=== PATIENT | female | born 1965 | race Caucasian/White ===

== ENCOUNTER → 2017-05-21 | Outpatient (CLI) | payer BC ==
--- NOTE | 2017-05-22 08:39 | RAD ---
DATE: 05/21/2017 EXAM: MAMMO SAM SCREENING BILATERAL HISTORY: Routine screening COMPARISON: 05/04/2015 This study was interpreted with the benefit of Computerized Aided Detection (CAD). The breast parenchyma shows scattered fibroglandular densities. Breast parenchyma level B. FINDINGS: 2-D and 3-D tomosynthesis imaging was performed in CC and MLO projections. A small nodular opacity is again noted in the right breast at approximately 12:00 location. It is best seen on the oblique projection and is unchanged. No new or enlarging breast densities are seen. No suspicious microcalcifications are evident. IMPRESSION: Stable mammograms without evidence of malignancy. BI-RADS CATEGORY: 2 BENIGN FINDING(S) RECOMMENDED FOLLOW-UP: 12M 12 MONTH FOLLOW-UP PQRS compliance statement: Patient information was entered into a reminder system with a target due date for the next mammogram. Mammography is a sensitive method for finding small breast cancers, but it does not detect them all and is not a substitute for careful clinical examination. A negative mammogram does not negate a clinically suspicious finding and should not result in delay in biopsying a clinically suspicious abnormality. "Our facility is accredited by the [employer] Mammography [employer]."
== END | disposition home or self-care (01) ==
LOC: MAMMO 10:15
PROVIDERS: ATTEND Family Medicine
DX: Z12.31 Encounter for screening mammogram for malignant neoplasm of breast (principal)
CPT/HCPCS: 77063; 77067

== ENCOUNTER → 2018-08-26 | Outpatient (CLI) | payer BC ==
--- NOTE | 2018-08-27 08:55 | RAD ---
DATE: 08/26/2018 EXAM: MAMMO SAM SCREENING BILATERAL HISTORY: Routine screening COMPARISON: 05/21/2017 This study was interpreted with the benefit of Computerized Aided Detection (CAD). Breast Density: SCATTERED The breast parenchyma shows scattered fibroglandular densities. Breast parenchyma level B. FINDINGS: 2-D and 3-D tomosynthesis imaging was performed in CC and MLO projections. No new or enlarging breast densities are seen. No suspicious microcalcification is evident. IMPRESSION: There is no mammographic evidence of malignancy in either breast. BI-RADS CATEGORY: 1 NEGATIVE RECOMMENDED FOLLOW-UP: 12M 12 MONTH FOLLOW-UP PQRS compliance statement: Patient information was entered into a reminder system with a target due date for the next mammogram. Mammography is a sensitive method for finding small breast cancers, but it does not detect them all and is not a substitute for careful clinical examination. A negative mammogram does not negate a clinically suspicious finding and should not result in delay in biopsying a clinically suspicious abnormality. "Our facility is accredited by the [employer] Mammography [employer]."
== END | disposition home or self-care (01) ==
LOC: MAMMO 13:00
PROVIDERS: ATTEND Obstetrics & Gynecology
DX: Z12.31 Encounter for screening mammogram for malignant neoplasm of breast (principal)
CPT/HCPCS: 77063; 77067

== ENCOUNTER → 2019-09-01 | Outpatient (CLI) | payer BC ==
--- NOTE | 2019-09-02 12:20 | RAD ---
DATE: 09/01/2019 3:12 PM EXAM: MAMMO SAM SCREENING BILATERAL HISTORY: Screening COMPARISON: 08/26/2018, 05/21/2017 Bilateral CC and MLO views of the breasts were performed. Bilateral breast tomosynthesis was performed in CC and MLO projections. This study was interpreted with the benefit of Computerized Aided Detection (CAD). FINDINGS: Breast Density: SCATTERED The breast parenchyma shows scattered fibroglandular densities. Breast parenchyma level B No suspicious masses, microcalcifications or architectural distortion is present to suggest malignancy in either breast. The visualized axillae are unremarkable. IMPRESSION: No mammographic evidence of malignancy. BI-RADS CATEGORY: 1 NEGATIVE RECOMMENDED FOLLOW-UP: 12M 12 MONTH FOLLOW-UP Annual screening mammography is recommended, unless clinically indicated sooner based on symptoms or change in physical exam. PQRS compliance statement: Patient information was entered into a reminder system with a target due date 09/01/2020 for the next mammogram. Mammography is a sensitive method for finding small breast cancers, but it does not detect them all and is not a substitute for careful clinical examination. A negative mammogram does not negate a clinically suspicious finding and should not result in delay in biopsying a clinically suspicious abnormality. "Our facility is accredited by the [employer] Mammography [employer]."
== END | disposition home or self-care (01) ==
LOC: MAMMO 14:39
PROVIDERS: ATTEND Family Medicine
DX: Z12.31 Encounter for screening mammogram for malignant neoplasm of breast (principal)
CPT/HCPCS: 77063; 77067

== ENCOUNTER → 2020-10-18 | Outpatient (CLI) | payer BC ==
--- NOTE | 2020-10-18 16:51 | RAD ---
EXAM: BILATERAL DIGITAL 3D SCREENING MAMMOGRAPHY. HISTORY: Routine mammographic screening. TECHNIQUE: Bilateral digital 3D and tomographic images were obtained in CC and MLO projections. Compu ter-aided detection was applied. COMPARISON: 09/01/2019. COMPOSITION: B. There are scattered areas of fibroglandular density. FINDINGS: There are obscured nodules centrally on the CC view. One projects inferiorly on the MLO vie w, while the other has no clear correlate. There is also a developing parenchymal asymmetry centrally on the right MLO view. See annotations. There is no suspicious finding on the left. BI-RADS CATEGORY 0: Incomplete--Needs Additional Imaging Evaluation. RECOMMENDATION: 1. Sonography of the right breast from 12:00-6:00 to assess developing parenchymal asymmetry and smal l nodules as above. Electronically signed by: Carolyn Carranza MD (10/18/2020 4:49 PM) [email or web address]
== END ==
LOC: MAMMO 11:45
PROVIDERS: ATTEND Family Medicine
DX: Z12.31 Encounter for screening mammogram for malignant neoplasm of breast (principal); N63.10 Unspecified lump in the right breast, unspecified quadrant
CPT/HCPCS: 77063; 77067

== ENCOUNTER → 2020-10-26 | Outpatient (CLI) | payer BC ==
--- NOTE | 2020-10-27 17:11 | RAD ---
INDICATION: 55 year-old female presents for further evaluation of an abnormality seen on prior mammo gram within the right breast TECHNIQUE: Targeted high resolution sonography of the regions of mammographic findings was performed . COMPARISON: 10/18/2020, 09/01/2019, 08/26/2018, 05/21/2017 ULTRASOUND FINDINGS: Targeted ultrasound of the mammographic areas of concern was performed. 12:00 position, 4 cm from the nipple: A hypoechoic mass of circumscribed margins and round/oval shape is present, measuring 0.5 cm. This demonstrates mild heterogeneous internal echogenicity. 1:00 position, 3 cm from the nipple: A hypoechoic mass of circumscribed margins and round/oval shape is present, measuring 0.5 x 0.2 x 0.5 cm. This demonstrates internal homogenous echogenicity. 5:00 position, 4 cm from the nipple: A hypoechoic mass of circumscribed margins and round/oval shape is present, measuring 0.4 x 0.4 x 0.3 cm. This demonstrates internal homogenous echogenicity. IMPRESSION: Probably benign finding. RECOMMENDATION: Recommend 6 month ultrasound follow up. BI-RADS 3: Probably Benign Electronically signed by: Irvin Reagan MD (10/27/2020 5:09 PM) [email or web address]
== END ==
LOC: US 12:44
PROVIDERS: ATTEND Family Medicine
DX: N63.14 Unspecified lump in the right breast, lower inner quadrant (principal); R92.2 Inconclusive mammogram
CPT/HCPCS: 76641

== ENCOUNTER → 2021-04-26 | Outpatient (CLI) | payer BC ==
--- NOTE | 2021-04-26 15:36 | RAD ---
EXAM: Right breast sonogram. HISTORY: 55-year-old female presents for follow-up evaluation of findings within the right breast dem onstrated on a sonogram performed 10/26/2020. TECHNIQUE: Sonographic imaging of the right breast targeted to sites of prior findings was performed. COMPARISON: 10/26/2020. FINDINGS: There is a stable 4 mm oval circumscribed hypoechoic lesion at the 12:00 position 4 cm from the nipple, the appearance of which favors a cyst with internal debris. There is a similar-appearing cyst measuring 6 mm at the 1:00 position 3 cm from the nipple which is also stable in appearance. Th ere is a stable 5 mm suspected cluster of cysts or complicated cyst at the 5:00 position 4 cm from th e nipple. No new lesion is seen. IMPRESSION: 1. Stable benign cystic lesions within the right breast measuring up to 6 mm. No new suspicious sonog raphic finding. The stability and multiplicity of these lesions favors benignity. 2. BI-RADS Category 2: Benign finding(s). The patient will be due for bilateral mammography in 6 dk hs according to a previously established mammography interval. Electronically signed by: Viktoria Al MD (04/26/2021 3:34 PM) [id number]
== END ==
LOC: US 15:01
PROVIDERS: ATTEND Family Medicine
DX: N64.89 Other specified disorders of breast (principal); R92.8 Other abnormal and inconclusive findings on diagnostic imaging of breast
CPT/HCPCS: 76641